=== PATIENT | female | born 1980 | race Two or more races ===

== ENCOUNTER → 2019-01-08 | Outpatient (CLI) | payer OTHER | END | disposition home or self-care (01) | LOC: RX STUDY 09:37 | DX: N93.0 Postcoital and contact bleeding (principal) ==

== ENCOUNTER 2023-11-19 08:36 | Outpatient (CLI) | payer OTHER | END 2023-11-19 08:38 | disposition home or self-care (01) | LOC: PRENATAL 08:36 | PROVIDERS: ATTEND Obstetrics & Gynecology Maternal & Fetal Medicine | DX: Z76.1 Encounter for health supervision and care of foundling (principal) ==